=== PATIENT | male | born 1980 | race Caucasian/White ===

== ENCOUNTER 2021-06-06 13:07 | Emergency (ER) | payer OTHER ==
[~2021-06-06] VITALS: Ht 177.8 cm; Wt 72.6 kg
[~2021-06-06 13:07] MED LIST: PREDNISONE 50 M50 MG PO; PROVENTIL HFA6.7 GM INH
== END 2021-06-06 17:29 | disposition home or self-care (01) ==
LOC: ER1 13:07
DX: Z23 Encounter for immunization (principal); U07.1 COVID-19; Z88.8 Allergy status to other drugs, medicaments and biological substances; F17.200 Nicotine dependence, unspecified, uncomplicated
CPT/HCPCS: 87081; 87880; 99283; M0243; U0002